=== PATIENT | male | born 1985 | race Caucasian/White ===

== ENCOUNTER 2016-11-25 06:53 | Emergency (ER) | payer BC ==
[~2016-11-25] VITALS: Wt 78.0 kg
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
== END 2016-11-25 08:20 | disposition home or self-care (01) ==
LOC: E/R 06:53
DX: F12.10 Cannabis abuse, uncomplicated (principal); F17.210 Nicotine dependence, cigarettes, uncomplicated
CPT/HCPCS: 99282